=== PATIENT | female | born 1985 | race Hispanic/Latino ===

== ENCOUNTER 2021-07-23 16:13 | Emergency (ER) | payer SELFPAY ==
[2021-07-23] MEDS ORDERED: Bupivacaine 0.25% 10 ML VIAL ONE (16:30)
[2021-07-23] MEDS ORDERED: Ketorolac Tromethamine 30 MG/ML VIAL ONE (17:02)
== END 2021-07-23 17:23 | disposition home or self-care (01) ==
LOC: ERS 16:13
DX: K04.7 Periapical abscess without sinus (principal); E11.9 Type 2 diabetes mellitus without complications; I10 Essential (primary) hypertension; Z79.84 Long term (current) use of oral hypoglycemic drugs; Z79.890 Hormone replacement therapy; Z79.899 Other long term (current) drug therapy
CPT/HCPCS: 96372; 99282; J1885; S0020

== ENCOUNTER 2021-07-23 23:18 | Emergency (ER) | payer SELFPAY ==
[2021-07-24] MEDS ORDERED: Bupivacaine 0.25% 10 ML VIAL ONE (01:08)
[2021-07-24] MEDS ORDERED: Morphine 4 MG/ML VIAL ONE (01:09)
[2021-07-24] MEDS ORDERED: Ketorolac Tromethamine 30 MG/ML VIAL ONE (01:09)
== END 2021-07-24 01:31 | disposition home or self-care (01) ==
LOC: ERS 23:18
DX: K02.9 Dental caries, unspecified (principal); E11.9 Type 2 diabetes mellitus without complications; I10 Essential (primary) hypertension; E03.9 Hypothyroidism, unspecified; Z79.84 Long term (current) use of oral hypoglycemic drugs; Z79.899 Other long term (current) drug therapy
CPT/HCPCS: 96372; J1885; J2270; S0020

== ENCOUNTER 2022-02-20 12:30 | Emergency (ER) | payer SELFPAY ==
[~2022-02-20 12:30] MED LIST: Iopamidol-370 76% 500 ML 1 ML ONE
[2022-02-20 13:40] LABS: Hemoglobin 5.6 g/dL (12.0-16.0); Mean Corpuscular HGB CONC 26.3 g/dL (32.0-36.0); Mean Corpuscular Hemoglobin 14.7 pg (27.0-31.0); Mean Corpuscular Volume 56.1 fl (78.0-98.0); Platelet Count 276 10x3/uL (130-400); RBC Distribution Width 19.6 % (11.5-14.5); Red Blood Cell (RBC) Count 3.82 mill/uL (4.20-5.40); Reflex for Review?? YES
[2022-02-20 13:46] LABS: BHCG - Serum Negative (NEGATIVE); Pregs Control Background? CLEAR/WHITE (CLR/WHITE); Pregs Control Bar Appear? YES (CONTROL BAR)
[2022-02-20 13:55] LABS: #Eosinphils 0.1 thou/uL (0.0-0.7); #Lymphocytes 1.7 thou/uL (1.20-3.40); #Monocytes 0.4 thou/uL (0.11-0.59); #Neutrophils 4.7 thou/uL (1.40-6.50); %Basophils 0.6 % (0.0-1.0); %Eosinophils 0.8 % (0.0-10.0); %Lymphocytes 24.3 % (21.0-51.0); %Monocytes 6.3 % (0.0-10.0); Band 1 % (5-11); Hypochromia MODERATE=16-30 cells (100X) (0-5/hpf); Lymphocytes 24 % (21-51); MDiff Complete? YES; Microcytosis MARKED = >30 cells (100X) (0-5/hpf); Monocytes 3 % (0-10); Neutrophil 70 % (42-75); Nucleated RBC 1 % (0); Ovalocytes SLIGHT = 2-5 cells (100X) (0-1/hpf); Platelet Morphology Comment Appears Adequate; Polychromasia SLIGHT = 2-3 cells (100X) (0-2/hpf)
[2022-02-20 14:12] LABS: ALT (SGPT) Less than 7 U/L (8-55); AST (SGOT) 11 U/L (5-34); Albumin 3.8 g/dL (3.5-5.0); Alkaline Phosphatase 95 U/L (40-110); Anion Gap 11 mmol/L (10-20); BUN (Urea Nitrogen) 15 mg/dL (7.0-18.7); Bilirubin, Total 0.9 mg/dL (0.2-1.2); Calc. Creatinine Clearance 0 mL/min (70-130); Calcium 8.6 mg/dL (7.8-10.44); Carbon Dioxide 26 mmol/L (22-29); Chloride 103 mmol/L (98-107); Estimated GFR 113; Globulin 3.7 g/dL (2.4-3.5); Glucose 89 mg/dL (70-105); Potassium 3.2 mmol/L (3.5-5.1); Protein, Total 7.5 g/dL (6.0-8.3); Sodium 137 mmol/L (136-145)
[2022-02-20 14:37] LABS: PTT 30.1 sec (22.9-36.1)
[2022-02-20] MEDS ORDERED: Ampicillin 2 GM VIAL ONE (18:10)
[2022-02-20 21:17] LABS: Bilirubin Negative (Negative); Blood, Urine Negative (Negative); Clarity Clear (Clear); Glucose, Urine (Dipstick) Normal (Negative); Ketone, Urine Negative (Negative); Leukocyte 75 Leu/uL (Negative); Nitrite Negative (Negative); Protein, Urine (Dipstick) Negative (Neg-Trace); RBC/HPF 0-3 HPF (0-3); Urobilinogen Normal mg/dL (Less than 2); pH, Urine 6.5 (5.0-9.0)
[2022-02-20 21:21] LABS: Bacteria/HPF 1+ HPF (None Seen); Specific Gravity, Urine 1.048 (1.002-1.036)
[2022-02-20 21:22] LABS: Squamous Epithelial 0-3 HPF (0-3)
[2022-02-20 22:23] LABS: Hemoglobin 6.2 g/dL (12.0-16.0); Mean Corpuscular Volume 58.9 fl (78.0-98.0); Red Blood Cell (RBC) Count 3.79 mill/uL (4.20-5.40)
[2022-02-20 22:35] LABS: Anisocytosis MODERATE=16-30 cells (100X) (0-5/hpf); Eosinophils 1 % (0-10); Hypochromia MARKED = >30 cells (100X) (0-5/hpf); Lymphocytes 15 % (21-51); MDiff Complete? YES; Mean Corpuscular HGB CONC 27.9 g/dL (32.0-36.0); Mean Corpuscular Hemoglobin 16.4 pg (27.0-31.0); Mean Platelet Volume 6.9 fL (7.4-10.4); Microcytosis MODERATE=15-30 cells (100X) (0-5/hpf); Monocytes 3 % (0-10); Neutrophil 78 % (42-75); Platelet Count 244 10x3/uL (130-400); Platelet Morphology Comment Appears Adequate; Polychromasia SLIGHT = 2-3 cells (100X) (0-2/hpf); RBC Distribution Width 24.4 % (11.5-14.5); Tear Drops SLIGHT = 2-5 cells (100X) (0-1/hpf)
[2022-02-20] MEDS ORDERED: Acetaminophen 500 MG TAB ONE (22:39)
[2022-02-21 01:57] LABS: #Basophils 0.1 thou/uL (0.0-0.2); #Lymphocytes 2.2 thou/uL (1.20-3.40); #Monocytes 0.5 thou/uL (0.11-0.59); #Neutrophils 5.2 thou/uL (1.40-6.50); %Basophils 0.9 % (0.0-1.0); %Eosinophils 0.2 % (0.0-10.0); %Lymphocytes 27.2 % (21.0-51.0); %Monocytes 6.6 % (0.0-10.0); %Neutrophils 65.2 % (42.0-75.0); Hemoglobin 7.6 g/dL (12.0-16.0); Mean Corpuscular HGB CONC 30.6 g/dL (32.0-36.0); Mean Corpuscular Hemoglobin 19.3 pg (27.0-31.0); Mean Platelet Volume 6.7 fL (7.4-10.4); Platelet Count 246 10x3/uL (130-400); Red Blood Cell (RBC) Count 3.95 mill/uL (4.20-5.40)
== END 2022-02-21 02:03 | disposition home or self-care (01) ==
LOC: ERS 12:30
DX: L03.211 Cellulitis of face (principal); D64.9 Anemia, unspecified; E11.9 Type 2 diabetes mellitus without complications; I10 Essential (primary) hypertension
CPT/HCPCS: 36415; 36430; 70491; 80053; 81003; 81015; 84703; 85025; 85060; 85610; 85730; 86850; 86900; 86901; 96365; J0290; P9016; Q9967

== ENCOUNTER 2023-02-22 05:47 | Emergency (ER) | payer BC ==
[2023-02-22] MEDS ORDERED: predniSONE 20 MG TAB ONE (06:32)
== END 2023-02-22 06:31 | disposition home or self-care (01) ==
LOC: ERS 05:47
DX: J06.9 Acute upper respiratory infection, unspecified (principal); I10 Essential (primary) hypertension; E11.9 Type 2 diabetes mellitus without complications; E03.9 Hypothyroidism, unspecified; Z79.899 Other long term (current) drug therapy; Z79.84 Long term (current) use of oral hypoglycemic drugs
CPT/HCPCS: 71045; J7512